=== PATIENT | female | born 1960 | race Caucasian/White ===

== ENCOUNTER 2017-07-27 22:37 | Emergency (ER) | payer OTHER ==
[~2017-07-27] VITALS: Ht 154.9 cm; Wt 59.1 kg
[2017-07-27 22:42] VITALS: BP 125/61; PULSE 97; RESP 16; TEMP 98.2; O2SAT 98
--- NOTE | 2017-07-27 22:49 | PD ---
HPI Chief Complaint: Injury Time Seen by Provider: 22:46 Travel History International Travel<30 days: No Contact w/Intl Traveler<30days: No History of Present Illness HPI 56-year-old female complains of left ankle pain. Patient fell this evening. Patient denies loss of consciousness. Patient denies any headache or neck pain. Patient denies any chest pain or shortness of breath. Patient denies abdominal pain. Patient complains of sharp pain localized to left ankle. Patient denies any pain radiation. Patient states that the pain is worse with weightbearing. On a scale of 1-10 the pain is an 8. Patient status post left tib-fib surgery in the past. PFSH Past Medical History ?: Not Social History Tobacco Use: No Allergies-Medications (Allergen,Severity, Reaction): Coded Allergies: Penicillins (Verified Allergy, Unknown, 07/27/17) Reported Meds & Prescriptions Reported Meds & Active Scripts Active Ultram (Tramadol HCl) 50 Mg Tab 50 Mg PO Q6H PRN Ibuprofen 600 Mg Tab 600 Mg PO TID Review of Systems General / Constitutional: No: Fever Eyes: No: Visual changes HENT: No: Headaches Cardiovascular: No: Chest Pain or Discomfort Respiratory: No: Shortness of Breath Gastrointestinal: No: Abdominal Pain Genitourinary: No: Dysuria Musculoskeletal: Positive: Pain Skin: No Rash Neurologic: No: Weakness Psychiatric: No: Depression Endocrine: No: Polydipsia Hematologic/Lymphatic: No: Easy Bruising Physical Exam Narrative GENERAL: Well-nourished, well-developed patient. SKIN: Focused skin assessment warm/dry. HEAD: Normocephalic. EYES: No scleral icterus. No injection or drainage. NECK: Supple, trachea midline. No JVD or lymphadenopathy. CARDIOVASCULAR: Regular rate and rhythm without murmurs, gallops, or rubs. RESPIRATORY: Breath sounds equal bilaterally. No accessory muscle use. GASTROINTESTINAL: Abdomen soft, non-tender, nondistended. MUSCULOSKELETAL: No cyanosis, or edema. BACK: Nontender without obvious deformity. No CVA tenderness. Patient has moderate tenderness on palpation lateral malleolus area of the left ankle. No soft tissue swelling noted. Full range of motion of the toes. Good DP pulses. Data Data Last Documented VS Vital Signs Date Time Temp Pulse Resp B/P (MAP) Pulse Ox O2 Delivery O2 Flow Rate FiO2 07/27/17 22:42 98.2 97 16 125/61 (82) 98 Orders Orders Ankle, Complete ([id number]) (07/27/17 22:46) Splint Or Brace Apply/Monitor (07/27/17 23:16) Crutches (07/27/17 23:16) Brace Ankle Stirrup (07/27/17 ) Ed Discharge Order (07/27/17 23:19) MDM Medical Decision Making Medical Screen Exam Complete: Yes Emergency Medical Condition: Yes Interpretation(s) X-ray left ankle shows no acute bony injury. Differential Diagnosis Differential diagnosis including sprain, fracture, dislocation. Narrative Course 56-year-old female with left ankle injury. Stirrup ankle brace and crutches given. Diagnosis Primary Impression: Left ankle sprain Qualified Codes: S93.402A - Sprain of unspecified ligament of left ankle, initial encounter Patient Instructions: General Instructions Additional Instructions: Ice elevation. Take medications as needed for pain. Follow-up with an orthopedist. Med/Other Pt SpecificInfo: Prescription(s) given Scripts Tramadol (Ultram) 50 Mg Tab 50 MG PO Q6H Y for PAIN, #10 TAB 0 Refills Prov: Hugh Jackson MD 07/27/17 Ibuprofen (Ibuprofen) 600 Mg Tab 600 MG PO TID for Pain, #60 TAB 0 Refills Prov: Hugh Jackson MD 07/27/17 Disposition: 01 DISCHARGE HOME Condition: Stable Hugh Jackson MD Jul 27, 2017 22:49
--- NOTE | 2017-07-27 23:12 | RADRPT ---
EXAM DATE/TIME: 07/27/2017 22:58 [facility] COMPARISON: No previous studies available for comparison. INDICATIONS : Trauma to ankle. MEDICAL HISTORY : None. SURGICAL HISTORY : None. ENCOUNTER: Initial ACUITY: 1 day PAIN SCORE: 7/10 LOCATION: Left ankle, lateral FINDINGS: Three view exam was performed of the left ankle. The bony structures are in normal alignment. No ev idence of fracture, dislocation, or soft tissue swelling. The ankle mortise is intact. Small planta r calcaneal spur. No radiopaque foreign bodies are seen. Bony mineralization is normal. CONCLUSION: No evidence of recent bony injury. Aaron Laguna MD on July 27, 2017 at 23:10 Board Certified Radiologist. This report was verified electronically.
[2017-07-27] MEDS ORDERED: IBUP-232 PO (23:18)
[2017-07-27] MEDS ORDERED: TRAM50 PO (23:18)
== END 2017-07-28 00:12 | disposition home or self-care (01) ==
LOC: NEPE 22:37
DX: S93.402A Sprain of unspecified ligament of left ankle, initial encounter (principal); W18.30XA Fall on same level, unspecified, initial encounter; Y99.0 Civilian activity done for income or pay; Z88.0 Allergy status to penicillin; Z79.899 Other long term (current) drug therapy
CPT/HCPCS: 73610; 99283; E0113; L1906